=== PATIENT | female | born 2000 | race Caucasian/White ===

== ENCOUNTER 2022-10-26 06:35 | Emergency (ER) | payer BC ==
[~2022-10-26] VITALS: Ht 154.9 cm; Wt 45.3 kg
[2022-10-26 06:39] VITALS: BP 119/76
--- NOTE | 2022-10-26 06:48 | ED EENT ---
History of Present Illness General Chief Complaint: Oral/Throat Problems Stated Complaint: SORE THROAT History of Present Illness Date Seen by Provider: Oct 26, 2022 Time Seen by Provider: 06:46 Initial Comments 22-year-old female reports that she developed a sore throat yesterday evening. That her ear started hurting. She has some mild swollen lymph nodes. Mild upset stomach. No fevers or chills reported. No known sick contacts. (PRINCESS SORIANO DO) Allergies and Home Medications Allergies Coded Allergies: amoxicillin (Unverified Adverse Reaction, Unknown, 10/26/22) Patient Home Medication List Home Medication List Reviewed: Yes (PRINCESS SORIANO DO) Home Medication List Reviewed: Yes (KRZYSZTOF CONRAD MD) No Active Prescriptions or Reported Meds Review of Systems Review of Systems Constitutional: No chills, No fever Eyes: No Symptoms Reported Ears: Pain Nose: no symptoms reported Mouth: no symptoms reported Throat: pain Respiratory: no symptoms reported Cardiovascular: no symptoms reported Gastrointestinal: No abdominal pain; nausea; No vomiting Musculoskeletal: no symptoms reported Skin: no symptoms reported Neurological: No Symptoms Reported (PRINCESS SORIANO DO) Physical Exam Vital Signs Vital Signs - First Documented 10/26/22 06:39 Temp 36.7 Pulse 99 Resp 16 B/P (MAP) 119/76 (90) Pulse Ox 100 O2 Delivery Room Air (KRZYSZTOF CONRAD MD) Height, Weight, BMI Height: '" Weight: lbs. oz. kg; BMI Method: General Appearance: WD/WN Eyes: bilateral eye normal inspection Ears: bilateral ear other (Cerumen impaction) Nose: normal inspection Mouth/Throat: No tongue swollen, No tonsillar exudate, No tonsillar swelling Neck: lymphadenopathy (R), lymphadenopathy (L) Cardiovascular: normal peripheral pulses, regular rate, rhythm Respiratory: lungs clear, normal breath sounds Gastrointestinal: non tender, soft Neurologic/Psychiatric: alert, normal mood/affect, oriented x 3 Skin: normal color, warm/dry (PRINCESS SORIANO DO) General Appearance: WD/WN, no apparent distress Eyes: bilateral eye PERRL Ears: bilateral ear other (bilateral ear wax) Mouth/Throat: other (Minimal erythema of pharynx. Normal tonsils) Neck: non-tender, full range of motion, supple, normal inspection Cardiovascular: regular rate, rhythm Respiratory: lungs clear, normal breath sounds Neurologic/Psychiatric: alert, normal mood/affect, oriented x 3 Skin: normal color (KRZYSZTOF CONRAD MD) Progress/Results/Core Measures Results/Orders Lab Results Laboratory Tests Test 10/26/22 06:51 Range/Units Group A Streptococcus Screen NEGATIVE NEGATIVE (KRZYSZTOF CONRAD MD) Vital Signs/I&O 10/26/22 06:39 Temp 36.7 Pulse 99 Resp 16 B/P (MAP) 119/76 (90) Pulse Ox 100 O2 Delivery Room Air (KRZYSZTOF CONRAD MD) Progress Progress Note : Time: 07:00 Progress Note Care transferred to Dr. Rivera with rapid strep test pending. (PRINCESS SORIANO DO) Progress Note : Progress Note 1. VIRAL PHARYNGITIS: -Patient signed out to me from night physician, with strep test pending. Strep test is negative. -Advised Cepacol spray for throat pain, Tylenol or ibuprofen as needed for pain or fever, vitamin C. -Advised to maintain good oral hygiene, and warm salt water gargles as needed -Follow-up with PCP in the next 3 to 7 days -The patient was seen in the ED, and treated appropriately to presentation at a specific point in time. Patient is informed that there is a possibility that disease and illness can evolve and change in acuity rapidly or slowly after patient is discharged from the ER. Precautionary advice given to the patient for immediate return to ER if symptoms worsen or do not resolve, and to seek emergency care sooner rather than later. Pt also advised on the importance of PCP follow up and compliance with management and follow up plan with PCP and/or specialist, as this is part of the management plan. Pt verbally expressed understanding. (KRZYSZTOF CONRAD MD) Departure Impression Primary Impression: Viral pharyngitis Disposition: 01 HOME, SELF-CARE Condition: Stable Departure-Patient Inst. Referrals: NO,LOCAL PHYSICIAN (PCP/Family) Primary Care Physician Patient Instructions: Viral Pharyngitis Add. Discharge Instructions: -Advised Cepacol spray for throat pain, Tylenol or ibuprofen as needed for pain or fever, vitamin C. -Advised to maintain good oral hygiene, and warm salt water gargles as needed -Follow-up with PCP in the next 3 to 7 days All discharge instructions reviewed with patient and/or family. Voiced understanding. Scripts No Active Prescriptions or Reported Meds PRINCESS SORIANO DO Oct 26, 2022 06:48 KRZYSZTOF CONRAD MD Oct 26, 2022 07:19
== END 2022-10-26 07:24 | disposition home or self-care (01) ==
LOC: ER FS 06:37
DX: J02.8 Acute pharyngitis due to other specified organisms (principal); B34.9 Viral infection, unspecified; Z28.310 Unvaccinated for COVID-19
CPT/HCPCS: 87430; 99283